=== PATIENT | female | born 1990 | race Caucasian/White ===

== ENCOUNTER 2020-06-12 07:57 | Inpatient (IN) | payer OTHER, SELFPAY ==
[2020-06-12 09:06] VITALS: BMI 26.5
[2020-06-12] MEDS ORDERED: hydrALAZINE 20 MG/ML VIAL SLOW IVP PRN ×2 (09:30→09:51)
[2020-06-12 09:43] LABS: Amnisure Test No Membranes Rupture (No Rupture)
[2020-06-12] MEDS ORDERED: Methylergonovine 0.2 MG/ML VIAL IM PRN (09:51)
[2020-06-12] MEDS ORDERED: Ibuprofen 800 MG TAB PO PRN (09:51)
[2020-06-12] MEDS ORDERED: Ondansetron PF 4 MG/2 ML Vial IVP PRN (09:51)
[2020-06-12] MEDS ORDERED: Misoprostol 200 MCG TAB PR PRN (09:51)
[2020-06-12] MEDS ORDERED: Promethazine HCl 25 MG/ML VIAL IM PRN (09:51)
[2020-06-12] MEDS ORDERED: Diphenoxylate HCl/Atropine Tablet PO PRN ×2 (09:51)
[2020-06-12] MEDS ORDERED: Carboprost 250 MCG/ML AMP IM PRN (09:51)
[2020-06-12] MEDS ORDERED: HYDROcodone/Acetaminophen 5/325 mg Tablet PO PRN ×2 (09:51)
[2020-06-12] MEDS ORDERED: Lidocaine 1% (PF) 30 ML VIAL SC PRN (09:51)
[2020-06-12] MEDS ORDERED: Butorphanol Tartrate 1 MG/ML VIAL SLOW IVP PRN (09:51)
[2020-06-12 11:13] LABS: Hemoglobin 11.9 g/dL (12.0-15.5); Mean Corpuscular Hemoglobin 31.6 pg (27.0-33.0); Mean Corpuscular Volume 93.1 fl (81.6-98.3); Mean Platelet Volume 11.8 fl (7.4-10.4); Platelet Count 171 10x3/uL (150-450); RBC Distribution Width 12.5 % (11.5-14.5); Red Blood Cell (RBC) Count 3.76 10x6/uL (3.90-5.03); White Blood Cell (WBC) Count 12.2 10x3/uL (3.5-10.5)
[2020-06-12 11:16] LABS: Hep B Surf Ag Non-Reactive S/CO (NonReactive)
[2020-06-12 11:17] LABS: Syphilis Antibody Nonreactive (Nonreactive); Syphilis Antibody Index 0.03 S/CO (<1.00 Non-Reactive)
[2020-06-12 11:22] LABS: HBSAg Index 0.14 S/CO (0-0.99)
[2020-06-12] MEDS: NS w/ Oxytocin 30 units 500 ML IVPB PRN (12:52)
[2020-06-12] MEDS: Lactated Ringer's 1,000 ML IV SCH (12:52)
[2020-06-12] MEDS ORDERED: Fentanyl 4 mcg/Bup 0.1% Cadd 100 ML ONE (16:43)
[2020-06-13] MEDS: Acetaminophen 500 MG TAB PO PRN ×2 (00:56→20:13)
[2020-06-13] MEDS: NS w/ Oxytocin 30 units 500 ML IVPB PRN (03:54)
[2020-06-13] MEDS: Lactated Ringer's 1,000 ML IV SCH ×3 (04:04→10:47)
[2020-06-13 05:44] LABS: Hemoglobin 10.6 g/dL (12.0-15.5); Mean Corpuscular HGB CONC 34.6 g/dL (32.0-36.0); Mean Corpuscular Hemoglobin 32.1 pg (27.0-33.0); Mean Corpuscular Volume 92.7 fl (81.6-98.3); Mean Platelet Volume 11.8 fl (7.4-10.4); Platelet Count 134 10x3/uL (150-450); RBC Distribution Width 12.5 % (11.5-14.5); White Blood Cell (WBC) Count 16.2 10x3/uL (3.5-10.5)
[2020-06-13 11:58] LABS: SARS-CoV-2 PCR by NAA Not Detected (NotDetected)
[2020-06-13] MEDS ORDERED: Ondansetron PF 4 MG/2 ML Vial IVP PRN (14:04)
[2020-06-13] MEDS ORDERED: hydrALAZINE 20 MG/ML VIAL SLOW IVP PRN (14:04)
[2020-06-13] MEDS ORDERED: Promethazine HCl 25 MG/ML VIAL IM PRN (14:04)
[2020-06-13] MEDS ORDERED: diphenhydrAMINE 25 MG CAP PO PRN (14:04)
[2020-06-13] MEDS ORDERED: Varicella virus, LIVE 0.5 ML VIAL SC ONE (14:04)
[2020-06-13] MEDS ORDERED: Lanolin Ointment 7 GM TUBE TOP PRN (14:04)
[2020-06-13] MEDS ORDERED: Zolpidem Tartrate 5 MG TAB PO PRN (14:04)
[2020-06-13] MEDS ORDERED: Benzocaine-Menthol 82.5 ML CAN TOP PRN (14:04)
[2020-06-13] MEDS ORDERED: Bisacodyl 10 MG SUPP PR PRN (14:04)
[2020-06-13] MEDS ORDERED: Adacel (T-DAP) 0.5 ML SYRINGE IM ONE (14:04)
[2020-06-13] MEDS ORDERED: Preparation H Ointment 28 GM TUBE PR PRN (14:04)
[2020-06-13] MEDS ORDERED: Milk Of Magnesia 30 ML UDCUP PO PRN (14:04)
[2020-06-13] MEDS ORDERED: Measles/Mumps/Rubella 10 MCG/0.5 ML VIAL SC ONE (14:04)
[2020-06-13] MEDS: Ibuprofen 800 MG TAB PO SCH ×2 (14:24→19:57)
[2020-06-13] MEDS: Ferrous Sulfate 325 MG TAB PO SCH (14:30)
[2020-06-13] MEDS ORDERED: NS w/ Oxytocin 30 units 500 ML IV SCH (14:30)
[2020-06-13] MEDS: Docusate Calcium (SURFAK) 240 MG CAP PO SCH (20:13)
[2020-06-14] MEDS: Lactated Ringer's 1,000 ML IV SCH ×2 (01:47→08:00)
[2020-06-14] MEDS: Acetaminophen 500 MG TAB PO PRN ×2 (04:59→15:14)
[2020-06-14 07:25] VITALS: BP 125/70; TEMP 98
[2020-06-14] MEDS: Ferrous Sulfate 325 MG TAB PO SCH (07:28)
[2020-06-14] MEDS: Ibuprofen 800 MG TAB PO SCH ×2 (07:30→15:18)
[2020-06-14] MEDS: Docusate Calcium (SURFAK) 240 MG CAP PO SCH (07:30)
[2020-06-14] MEDS ORDERED: Prenatal Vitamin 1 TAB PO SCH (09:00)
== END 2020-06-14 16:37 | disposition home or self-care (01) | DRG 807 ==
LOC: CSHLD/OP 07:57 → CSHLD 13:30 → CSHPP 06-13 04:01
PROVIDERS: ADMIT Obstetrics & Gynecology; ATTEND Obstetrics & Gynecology
PROC: 10D07Z6 Extraction of Products of Conception, Vacuum, Via Natural or Artificial Opening (ICD-10-PCS; principal; 2020-06-13)
DX: O64.0XX0 Obstructed labor due to incomplete rotation of fetal head, not applicable or unspecified (principal); Z37.0 Single live birth; Z3A.39 39 weeks gestation of pregnancy; Z20.822 Contact with and (suspected) exposure to COVID-19; Z23 Encounter for immunization
CPT/HCPCS: 36415; 51702; 80053; 81003; 81015; 84112; 85025; 85027; 86780; 86850; 86900; 86901; 87340; 87635; 90715; 96360; 96361; 99283; 99285; J0595; J2405; J2590; U0003; U0005